=== PATIENT | male | born 1980 | race Caucasian/White ===

== ENCOUNTER 2016-06-06 21:02 | Emergency (ER) | payer SELFPAY ==
[~2016-06-06] VITALS: Ht 177.8 cm; Wt 63.5 kg
[2016-06-06] MEDS ORDERED: SEROQUEL25 MG ORAL (21:04)
[2016-06-06 21:47] VITALS: BP 135/85
--- NOTE | 2016-06-06 21:53 | Emergency Room Report ---
History of Present Illness General Chief Complaint: Behavioral Complaint Source: Patient, EMS Present Illness HPI This is a 35-year-old male with no past medical history. He does have a psychiatric history. He presents with chief complaint of being hungry wanting a place to sleep. He called 911 because he said he was suicidal. He tell me that he's been like this for 8 months. Has been in several hospital for this. Denies any fever chills denies any nausea vomiting. Currently not taking any medication. Denies any drug use. Allergies: Coded Allergies: No Known Allergies (Unverified , 06/06/16) Patient History Past Medical History: see triage record, old chart reviewed, psych hx Past Surgical History: other Pertinent Family History: none Social History: Reports: smoking Immunizations: other Reviewed Nursing Documentation: PMH: Agreed, PSxH: Agreed Nursing Documentation-PMH Past Medical History: No History, Except For Review of Systems Eye: Denies: blurred vision, eye pain ENT: Denies: ear pain, nose congestion, throat swelling Respiratory: Denies: cough, shortness of breath Cardiovascular: Denies: chest pain, palpitations Gastrointestinal: Denies: abdominal pain, diarrhea, nausea, vomiting Musculoskeletal: Denies: back pain, joint pain Skin: Denies: rash Neurological: Denies: headache, numbness Endocrine: Denies: increased thirst, increased urine Hematologic/Lymphatic: Denies: easy bruising All Other Systems: negative except mentioned in HPI Physical Exam Vital Signs Date Time Temp Pulse Resp B/P Pulse Ox O2 Delivery O2 Flow Rate FiO2 06/06/16 20:57 97.7 90 16 122/76 99 Room Air vitals normal Sp02 EP Interpretation: reviewed, normal General Appearance: well appearing, no apparent distress, alert Head: normocephalic, atraumatic Eyes: bilateral eye EOMI, bilateral eye PERRL ENT: hearing grossly normal, normal pharynx Neck: full range of motion, supple, no meningismus Respiratory: chest non-tender, lungs clear, normal breath sounds Cardiovascular #1: regular rate, rhythm, no murmur Gastrointestinal: normal bowel sounds, non tender, no mass, no organomegaly, no bruit, non-distended Musculoskeletal: back normal, gait/station normal, normal range of motion Psychiatric: mood/affect normal Skin: warm/dry Medical Decision Making Diagnostic Impression: Primary Impression: Suicidal thoughts ER Course Patient initially said he felt suicidal. After eating and sleeping he said he felt better. Denies any suicidal now. Denies any drug use. No homicidal thoughts. No hallucination or delusion. We'll discharge home. Last Vital Signs Date Time Temp Pulse Resp B/P Pulse Ox O2 Delivery O2 Flow Rate FiO2 06/06/16 21:47 97.7 98 19 135/85 100 Room Air Status: improved Disposition: HOME, SELF-CARE Referrals: NOT CHOSEN IPA/,REFERRING (PCP) Additional Instructions: Abstain from drugs and alcohol. Followup with your Dr. in 7 days. Return if symptom worsen. GEOVANI ALEXANDER M.D. Jun 06, 2016 21:53
[2016-06-06 21:58] VITALS: BP 135/85
== END 2016-06-06 21:59 | disposition home or self-care (01) ==
LOC: EDBD 21:02 → EMR 21:15
DX: R45.851 Suicidal ideations (principal); F17.200 Nicotine dependence, unspecified, uncomplicated
CPT/HCPCS: 99283